=== PATIENT | male | born 1965 | race Caucasian/White ===

== ENCOUNTER → 2025-01-31 | Outpatient (CLI) | payer BC ==
--- NOTE | 2025-01-31 15:52 | XR ---
EXAMINATION TYPE: XR Hip Complete LT DATE OF EXAM: 01/31/2025 2:02 PM COMPARISON: None. CLINICAL INDICATION: Male, 59 years old with history of M25.552 HIP PAIN, chronic low back pain going down leg TECHNIQUE: 2 view(s) obtained. FINDINGS: Femoral head articulates with the acetabulum. Mild diffuse narrowing of the joint space is present. N o acute fracture or dislocation evident. Pubis and left sacroiliac joint is visualized appears normal . Follow-up can be performed as clinically indicated. IMPRESSION: 1. No acute osseous abnormality left hip [facility], Workstation: [facility] [place] [facility], 01/31/2025 3:50 PM
== END | disposition home or self-care (01) ==
LOC: LABWHC1 13:43
PROVIDERS: ATTEND Family Medicine
DX: M25.552 Pain in left hip (principal)
CPT/HCPCS: 73502